=== PATIENT | male | born 1995 ===

== ENCOUNTER 2017-04-12 19:44 | Emergency (ER) | payer SELFPAY ==
[2017-04-12 20:24] VITALS: BP 127/55; PULSE 68; RESP 18; TEMP 98; O2SAT 99
--- NOTE | 2017-04-12 21:03 | ED PDOC ---
HPI: Skin/Bite Injury Time Seen by Provider: 04/12/17 20:55 Chief Complaint (Nursing): Abnormal Skin Integrity Chief Complaint (Provider): Rash History Per: Patient History/Exam Limitations: no limitations Onset/Duration Of Symptoms: Days (x 2 weeks) Current Symptoms Are (Timing): Still Present Additional Complaint(s): King is a 21 y/o male who presents to the ED with a rash that developed 2 weeks ago. Patient states that he lives with family, has not travelled recently , and has no known allergies. He denies any new products. PMD: None Provided Past Medical History Reviewed: Historical Data, Nursing Documentation, Vital Signs Vital Signs: Last Vital Signs Temp 98 F 04/12/17 20:20 Pulse 68 04/12/17 20:20 Resp 18 04/12/17 20:20 BP 127/55 L 04/12/17 20:20 Pulse Ox 99 04/12/17 21:28 - Family History Family History: States: Unknown Family Hx - Living Arrangements Living Arrangements: With Family - Allergies Allergies/Adverse Reactions: Allergies Allergy/AdvReac Type Severity Reaction Status Date / Time No Known Allergies Allergy Verified 04/12/17 20:24 Review of Systems ROS Statement: Except As Marked, All Systems Reviewed And Found Negative Skin: Positive for: Rash (neck) Physical Exam - Reviewed Nursing Documentation Reviewed: Yes Vital Signs Reviewed: Yes - Physical Exam Appears: Positive for: Non-toxic, No Acute Distress Head Exam: Positive for: ATRAUMATIC, NORMAL INSPECTION, NORMOCEPHALIC Skin: Positive for: Warm, Dry, Rash (multiple areas along neck and chest wall approx. 1 cm in length are hyper pigmented and scaly) Neck: Positive for: Normal, Painless ROM, Supple Cardiovascular/Chest: Positive for: Regular Rate, Rhythm. Negative for: Gallop , Murmur Respiratory: Negative for: Wheezing, Respiratory Distress Extremity: Positive for: Normal ROM. Negative for: Pedal Edema, Deformity Neurologic/Psych: Positive for: Alert, Oriented - ECG O2 Sat by Pulse Oximetry: 99 (RA) Pulse Ox Interpretation: Normal Medical Decision Making Medical Decision Making: Time: 10:55 Initial Impression: Fungal Rash --Patient was advised to use Selsun Blue on the affected area for 1 week. --Patient is stable for discharge home and will return if symptoms do not go away. Scribe Attestation: Documented by Leopoldo Talbert, acting as a scribe for Eusebio Starks PA-C Provider Scribe Attestation: All medical record entries made by the Scribe were at my direction and personally dictated by me. I have reviewed the chart and agree that the record accurately reflects my personal performance of the history, physical exam, medical decision making, and the department course for this patient. I have also personally directed, reviewed, and agree with the discharge instructions and disposition. Disposition - Clinical Impression Clinical Impression: Tinea versicolor - Patient ED Disposition Is Patient to be Admitted: No Counseled Patient/Family Regarding: Studies Performed, Diagnosis - Disposition Referrals: [facility] [Outside] Disposition: Routine/Home Condition: FAIR Additional Instructions: PLEASE APPLY SELSUN BLUE TO RASH 15 MINUTES DAILY X 1 WEEK Instructions: Tinea Versicolor (ED) Forms: [facility] (Cuban) - JESSICA Present On Arrival: None
== END 2017-04-12 21:37 | disposition home or self-care (01) ==
LOC: H.ER 19:44
DX: B36.0 Pityriasis versicolor (principal)